=== PATIENT | female | born 1985 | race Caucasian/White ===

== ENCOUNTER → 2020-12-21 21:02 | Observation (INO) ==
[2020-12-21 20:50] LABS: Bacteria,Urine Few per hpf (None-Few); Bilirubin,Urine Negative (Negative); Blood,Urine Negative (Negative); Clarity,Urine Clear (Clear); Color,Urine Yellow (Yellow); Glucose,Urine (UA) 50 mg/dL (Normal); Ketones,Urine 10 mg/dL (Negative); Leukocyte Esterase,Urine Negative (Negative); Mucus,Urine Few per lpf (None-Few); Nitrite,Urine Negative (Negative); Protein,Urine 30 mg/dL (Neg-Trace); Specific Gravity,Urine > 1.030 (1.010-1.025); Squamous Epithelial Cell,Urine Few per hpf (None-Few); Urobilinogen,Urine Normal (Normal)
== END | disposition home or self-care (01) ==
LOC: 1NENULAB
PROVIDERS: ADMIT Student in an Organized Health Care Education/Training Program; ATTEND Student in an Organized Health Care Education/Training Program

== ENCOUNTER 2020-12-29 07:44 | Inpatient (IN) ==
[2020-12-29] MEDS ORDERED: Metoclopramide 10 MG/2 ML VIAL IVP PRN (08:52)
[2020-12-29] MEDS ORDERED: Naloxone 0.4 MG/ML INJ IVP PRN (08:52)
[2020-12-29] MEDS ORDERED: Ondansetron 4 MG/2 ML VIAL IVP PRN (08:52)
[2020-12-29] MEDS ORDERED: *HR* Nalbuphine 10 MG/ML AMPUL IV PRN (08:52)
[2020-12-29] MEDS ORDERED: Azithromycin 500 MG in 0.9 % Sodium Chloride 250 ML IVPB PRN (08:52)
[2020-12-29] MEDS ORDERED: Famotidine 20 MG/2 ML VIAL IVP PRN (08:52)
[2020-12-29] MEDS ORDERED: miSOPROStoL 25 MCG TABLET PO PRN (09:00)
[2020-12-29 09:34] LABS: Basophils % 0.2 %; Eosinophils % 0.2 %; Hematocrit 31.6 % (35.3-44.9); Hemoglobin 10.2 g/dL (11.5-15.4); Lymphocytes # 2.2 K/mcL (0.6-4.6); Lymphocytes % 24.7 %; Mean Corpuscular HGB Conc 32.3 g/dL (31.6-35.5); Mean Corpuscular Hemoglobin 26.9 pg (28.0-33.3); Mean Corpuscular Volume 83.4 fL (83.0-100.0); Monocytes # 0.7 K/mcL (0.0-1.3); Monocytes % 8.1 %; Neutrophils # 5.9 K/mcL (1.6-8.9); Platelet Count 206 K/mcL (140-400); Red Blood Count 3.79 M/mcL (3.82-4.97); Red Cell Distribution Width 13.2 % (11.5-14.5); Segmented Neutrophils % 65.8 %; White Blood Count 8.9 K/mcL (4.3-11.1)
[2020-12-29 10:22] LABS: Influenza A PCR Negative (Negative); Influenza B PCR Negative (Negative); Resp. Syncytial Virus PCR Negative (Negative)
[2020-12-29 10:23] LABS: SARS-CoV-2 by PCR (In House) Negative (Negative)
[2020-12-29] MEDS ORDERED: EPHEDrine 50 MG/ML VIAL IVP PRN (12:22)
[2020-12-29] MEDS ORDERED: Oxytocin 20 units/ LR 1000 mL 20 UNIT/1,000 ML BAG IVC SCH (13:45)
[2020-12-29 13:56] LABS: Amphetamine Screen,Urine Negative ng/mL (Cutoff=1000); Barbiturate Screen,Urine Negative ng/mL (Cutoff=200); Benzodiazepines Screen,Urine Negative ng/mL (Cutoff=200); Cannabinoid Screen,Urine Negative ng/mL (Cutoff = 50); Cocaine Screen,Urine Negative ng/mL (Cutoff= 300); Opiate Screen,Urine Negative ng/mL (Cutoff=300); Phencyclidine Screen,Urine Negative ng/mL (Cutoff=25)
[2020-12-29] MEDS: Ringers Solution, Lactated 1,000 ML IVC SCH ×2 (13:59→17:36)
[2020-12-29] MEDS ORDERED: Ropivacaine/PF 0.2% 20 ML VIAL ONE (17:06)
[2020-12-29] MEDS ORDERED: *HR* FentaNYL (PF) 100 MCG/2 ML VIAL ONE (17:06)
[2020-12-29] MEDS: Epidural Premix (fent/bupiv) 110 ML EP SCH ×2 (17:36→23:59)
[2020-12-30] MEDS ORDERED: Ropivacaine/PF 0.2% 20 ML VIAL ONE (02:09)
[2020-12-30] MEDS: Ringers Solution, Lactated 1,000 ML IVC SCH (04:44)
[2020-12-30] MEDS ORDERED: Oxytocin 20 units/ LR 1000 mL 20 UNIT/1,000 ML BAG IVC ONE (07:56)
[2020-12-30] MEDS ORDERED: Oxytocin 20 units/ LR 1000 mL 20 UNIT/1,000 ML BAG IVC SCH (07:56)
[2020-12-30] MEDS ORDERED: Ondansetron ODT 4 MG TAB.RAPDIS SL PRN (07:56)
[2020-12-30] MEDS ORDERED: Benzocaine/Menthol 56 GM AEROSOL SPRAY TP PRN (07:56)
[2020-12-30] MEDS ORDERED: Rho Immune Globulin 1,500 UNIT SYRINGE IM PRN (07:56)
[2020-12-30] MEDS ORDERED: Measles/Mumps/Rubella Vacc 0.5 ML VIAL SQ PRN (07:56)
[2020-12-30] MEDS: Acetaminophen 325 MG TABLET PO SCH ×3 (08:07→22:19)
[2020-12-30] MEDS: Ibuprofen 600 MG TABLET PO SCH ×3 (08:08→22:18)
[2020-12-30] MEDS: Prenatal Vit/FA 1 EACH TABLET PO SCH (08:08)
[2020-12-30] MEDS: Lanolin 7 G OINT...G. TP PRN (19:10)
[2020-12-31 04:42] VITALS: O2SAT 97
[2020-12-31] MEDS: Ibuprofen 600 MG TABLET PO SCH (06:26)
[2020-12-31] MEDS: Acetaminophen 325 MG TABLET PO SCH (06:27)
[2020-12-31 06:59] LABS: Basophils % 0.2 %; Eosinophils # 0.1 K/mcL (0.0-0.6); Eosinophils % 1.1 %; Hematocrit 28.4 % (35.3-44.9); Hemoglobin 9.1 g/dL (11.5-15.4); Immature Granulocytes % 1.1 % (0-4); Lymphocytes # 2.6 K/mcL (0.6-4.6); Lymphocytes % 22.5 %; Mean Corpuscular Hemoglobin 26.8 pg (28.0-33.3); Mean Corpuscular Volume 83.8 fL (83.0-100.0); Mean Platelet Volume 10.2 fL (9.4-12.4); Monocytes # 0.7 K/mcL (0.0-1.3); Monocytes % 6.4 %; Neutrophils # 7.9 K/mcL (1.6-8.9); Platelet Count 167 K/mcL (140-400); Red Blood Count 3.39 M/mcL (3.82-4.97); Red Cell Distribution Width 13.3 % (11.5-14.5); Segmented Neutrophils % 68.7 %; White Blood Count 11.4 K/mcL (4.3-11.1)
[2020-12-31 07:54] VITALS: BP 122/83; PULSE 84; TEMP 98.1
[2020-12-31] MEDS: Prenatal Vit/FA 1 EACH TABLET PO SCH (08:12)
[2020-12-31] MEDS: Lanolin 7 G OINT...G. TP PRN (08:13)
== END 2020-12-31 12:45 | disposition home or self-care (01) | DRG 807 ==
LOC: 1NENULAB 07:44 → 1NENUOBS 12-30 07:48
PROVIDERS: ADMIT Obstetrics & Gynecology; ATTEND Obstetrics & Gynecology